=== PATIENT | male | born 1985 | race Caucasian/White ===

== ENCOUNTER 2023-03-30 08:52 | Outpatient (CLI) | payer OTHER, SELFPAY ==
[2023-03-30 12:47] LABS: Basophils Absolute Auto 0.1 K/mm3 (0.0-0.1); Basophils Percent Auto 0.7 % (0.2-1.2); Eosinophils Absolute Auto 0.4 K/mm3 (0-0.3); Eosinophils Percent Auto 3.8 % (0-4.4); Hemoglobin 14.9 g/dL (14.0-18.0); Immature Granulocyte Absolute 0.17 K/mm3 (0.00-0.031); Immature Granulocyte Percent A 1.7 % (0-0.5); Lymphocytes Absolute Auto 3.79 K/mm3 (0.9-3.2); Lymphocytes Percent Auto 36.9 % (18.3-44.2); Mean Corpuscular HGB Conc 33.9 g/dl (32-36); Mean Corpuscular Volume 91.5 fl (80-100); Mean Platelet Volume 10.5 fl (7.4-10.4); Monocytes Absolute Auto 1.2 K/mm3 (0.1-0.6); Monocytes Percent Auto 11.2 % (2.6-8.5); Neutrophils Absolute Auto 4.7 K/mm3 (1.3-6.7); Neutrophils Percent Auto 45.7 % (45.5-73.1); Platelet Count Result 302 k/mm3 (150-375); Red Blood Count 4.81 M/mm3 (4.6-6.20); Red Cell Distribution Width 13.8 % (11.5-14.5); White Blood Count 10.3 K/mm3 (4.5-10.0)
[2023-03-30 13:18] LABS: Alanine Aminotransferase 34 U/L (6-50); Albumin Level 4.6 g/dL (3.5-5.1); Alkaline Phosphatase 74 U/L (38-126); Anion Gap 9 mmol/L (8-16); Aspartate Amino Transferase 44 U/L (17-59); Bilirubin,Total 0.4 mg/dL (0.2-1.3); Blood Urea Nitrogen 20 mg/dL (9-20); Calcium 8.8 mg/dL (8.4-10.2); Carbon Dioxide 24 mmol/L (22-30); Chloride 107 mmol/L (98-107); Cholesterol 184 mg/dL (0-200); Estimated Glomerular Filt Rate > 60; Glucose 87 mg/dL (65-110); HDL Direct 33 mg/dL; Sodium 140 mmol/L (137-145); Triglycerides 233 mg/dL (<150)
[2023-03-30 13:31] LABS: LDL Cholesterol Direct 101 mg/dL
[2023-03-30 13:58] LABS: Vitamin D 25 Hydroxy 38.3 ng/mL
== END 2023-03-30 08:53 | disposition home or self-care (01) ==
LOC: ANHGOSHLAB 08:54
PROVIDERS: PCP Family Medicine; Visit Provider Nurse Practitioner
DX: F41.9 Anxiety disorder, unspecified (principal); F32.A Depression, unspecified; I10 Essential (primary) hypertension
CPT/HCPCS: 36415; 80053; 80061; 82306; 84443; 85025

== ENCOUNTER 2023-06-15 14:01 | Emergency (ER) | payer OTHER, SELFPAY ==
[2023-06-15 14:19] VITALS: BP 148/92; PULSE 76; RESP 19; TEMP 36.3; O2SAT 99
[2023-06-15 14:44] LABS: Basophils Absolute Auto 0.1 K/mm3 (0.0-0.1); Basophils Percent Auto 0.5 % (0.2-1.2); Eosinophils Absolute Auto 0.5 K/mm3 (0-0.3); Eosinophils Percent Auto 3.9 % (0-4.4); Hematocrit 42.5 % (42.0-52.0); Hemoglobin 14.5 g/dL (14.0-18.0); Immature Granulocyte Absolute 0.08 K/mm3 (0.00-0.031); Immature Granulocyte Percent A 0.7 % (0-0.5); Lymphocytes Absolute Auto 3.68 K/mm3 (0.9-3.2); Lymphocytes Percent Auto 31.1 % (18.3-44.2); Mean Corpuscular HGB Conc 34.1 g/dl (32-36); Mean Corpuscular Hemoglobin 30.7 pg (26-34); Mean Corpuscular Volume 89.9 fl (80-100); Mean Platelet Volume 10.7 fl (7.4-10.4); Monocytes Percent Auto 8.1 % (2.6-8.5); Neutrophils Absolute Auto 6.6 K/mm3 (1.3-6.7); Neutrophils Percent Auto 55.7 % (45.5-73.1); Platelet Count Result 219 k/mm3 (150-375); Red Blood Count 4.73 M/mm3 (4.6-6.20); Red Cell Distribution Width 13.6 % (11.5-14.5); White Blood Count 11.8 K/mm3 (4.5-10.0)
[2023-06-15 14:56] LABS: Alanine Aminotransferase 35 U/L (6-50); Albumin Level 4.1 g/dL (3.5-5.1); Alkaline Phosphatase 74 U/L (38-126); Anion Gap 7 mmol/L (8-16); Aspartate Amino Transferase 29 U/L (17-59); Bilirubin,Total 0.4 mg/dL (0.2-1.3); Blood Urea Nitrogen 13 mg/dL (9-20); Calcium 8.7 mg/dL (8.4-10.2); Carbon Dioxide 27 mmol/L (22-30); Chloride 104 mmol/L (98-107); Estimated CRCL calculation 104 ml/min; Estimated Glomerular Filt Rate > 60; Glucose 94 mg/dL (65-110); Potassium 4.3 mmol/L (3.4-5.0); Sodium 138 mmol/L (137-145)
[2023-06-15 14:57] LABS: INR 0.9; Prothrombin Time 12.6 Seconds (11.1-14.7)
[2023-06-15 14:58] LABS: Partial Thromboplastin Time 25.2 SECONDS (22.3-36.8)
--- NOTE | 2023-06-15 16:12 | ED.GENADULT ---
HPI - General Adult General Chief complaint: GI Bleed Stated complaint: bloody stools Time Seen by Provider: 06/15/23 15:52 History of Present Illness HPI narrative: Patient is a 38-year-old male who presents ER with rectal bleeding. It occurs only when he is wiping. Ongoing for months but worsening over the last couple of weeks. He has not filled the stool with blood. He has been using topical Preparation H but he does not know if it is witch lorraine or steroid or lidocaine. No constipation. He does do some heavy lifting at his place of work for the [employer]. He has had no dizziness or loss of consciousness. He does have history of hemorrhoidectomy in the past. Related Data Allergies Allergy/AdvReac Type Severity Reaction Status Date / Time No Known Allergies Allergy Unverified 03/30/23 08:06 Review of Systems Review of Systems: All systems reviewed & are unremarkable except as noted in HPI and below Gastrointestinal: Gastrointestinal: Denies abdominal pain, Denies diarrhea, Denies nausea and Denies vomiting Comments: Hemorrhoids Neurologic: Denies dizziness and Denies syncope PMFSH Past Medical History Medical History (Updated 06/15/23 @ 16:19 by Norman Ovalles MD) Anxiety and depression Hemorrhoid Hypertension Surgical History Surgical History (Updated 06/15/23 @ 16:19 by Norman Ovalles MD) History of hemorrhoidectomy Family History Family History (Updated 03/30/23 @ 08:14 by Rosibel Boucher CMA) Father Hypertension Mother Hypertension Sibling Hypertension Social History Social History (Updated 03/30/23 @ 08:11 by Rosibel Boucher CMA) Smoking status: Current every day smoker Tobacco type: cigarettes Alcohol intake: never Lack of Transportation: No Lack of Food: Never True Current Housing: I Have Housing Concerned About Future Housing: YES Difficulty Paying Gas/Electric Bills: YES Difficulty Paying for Meds: YES Currently Unemployed: No Education: High School Diploma/GED Difficulty w/ Childcare or Family Care: No Exam Narrative: GENERAL: Well-appearing, well-nourished, and in no acute distress. HEAD: Normocephalic, atraumatic. CHEST: Clear to auscultation. No respiratory distress. HEART: Regular rate and rhythm. Normal peripheral pulses. ABDOMEN: Soft, nontender, nondistended. Rectal: There is a small hemorrhoid at the 2 o'clock position with patient laying in the right lateral decubitus position. Nonthrombosed and nonbleeding. No fissures. NEURO: Alert and oriented x3. PSYCH: Normal mood and affect. Course Course Emergency Course: Patient resting comfortably. Discussed conservative treatment options. Patient would like a work note. Discharge home. Vital Signs Vital signs: Vital Signs Temperature 97.4 F L 06/15/23 14:19 Pulse Rate 76 06/15/23 14:19 Respiratory Rate 19 06/15/23 14:19 Blood Pressure 148/92 H 06/15/23 14:19 Pulse Oximetry 99 06/15/23 14:19 Oxygen Delivery Room Air 06/15/23 14:19 Temperature 97.4 F L 06/15/23 14:19 Pulse Rate 76 06/15/23 14:19 Respiratory Rate 19 06/15/23 14:19 Blood Pressure 148/92 H 06/15/23 14:19 Pulse Oximetry 99 06/15/23 14:19 Oxygen Delivery Room Air 06/15/23 14:19 Medical Decision Making Vital Signs Vital Signs: Vital Signs Temperature 97.4 F L 06/15/23 14:19 Pulse Rate 76 06/15/23 14:19 Respiratory Rate 19 06/15/23 14:19 Blood Pressure 148/92 H 06/15/23 14:19 Pulse Oximetry 99 06/15/23 14:19 Oxygen Delivery Room Air 06/15/23 14:19 Temperature 97.4 F L 06/15/23 14:19 Pulse Rate 76 06/15/23 14:19 Respiratory Rate 19 06/15/23 14:19 Blood Pressure 148/92 H 06/15/23 14:19 Pulse Oximetry 99 06/15/23 14:19 Oxygen Delivery Room Air 06/15/23 14:19 Lab Data 06/15/23 14:36 06/15/23 14:36 Labs: Lab Results 06/15/23 Range/Units 14:36 WBC 11.8 H (4.
[2023-06-15 16:47] VITALS: BP 132/86; PULSE 78; RESP 16; O2SAT 98
== END 2023-06-15 16:48 | disposition home or self-care (01) ==
LOC: ANHED 16:25
PROVIDERS: Emergency Provider Emergency Medicine
DX: K64.9 Unspecified hemorrhoids (principal); I10 Essential (primary) hypertension
CPT/HCPCS: 36415; 80053; 85025; 85610; 85730; 86850; 86900; 86901; 99283

== ENCOUNTER 2025-07-17 12:52 | Emergency (ER) | payer OTHER, SELFPAY ==
--- NOTE | ~2025-07-17 | CT_ITS ---
EXAMINATION: CT soft tissue neck w con DATE: 07/17/2025 15:39 INDICATION: Left lower neck and jaw pain and swelling TECHNIQUE: Computed tomography (CT) of the neck was performed with 75 mL Omnipaque-350 intravenous contrast. Automated exposure control and iterative reconstruction technique were employed. The dose-length product was 593.18 mGy-cm. COMPARISON: None FINDINGS: Orbits are normal. The paranasal sinuses are clear. Mastoid air cells and middle ear cavities are clear. Bilateral parotid glands are normal and symmetric. There is asymmetric reticulated pattern of decreased attenuation suggestive of interstitial edema within the left parotid gland. There are also appears to be some relative hyperemia of the left parotid gland when compared with the right as well as some surrounding edema in the left submandibular subcutaneous fat. Constellation of findings consistent with sialoadenitis. No abscess. Likely benign 1.4 cm hypodense nodule at the inferior left thyroid lobe. There are scattered normal-sized lymph nodes in the neck, no lymphadenopathy. No masses identified. The vasculature is patent and normal in caliber. Airway is unremarkable. Superior mediastinum is unremarkable. Lung apices are normal. Bones are unremarkable. IMPRESSION: 1. Left submandibular sialoadenitis. Reviewed, dictated and finalized at location A.
[2025-07-17 12:55] VITALS: BP 149/84; PULSE 77; RESP 16; TEMP 36.8; O2SAT 100
--- OUTSIDE RECORDS SUMMARY | 2025-07-17 12:57 | XMS_ITS | Continuity of Care Document ---
Author Name Margy Oakes Address [address] [place], [place] [id number] [place] [address] Organization Unknown Address [address] [place] [address] Medications No known medications Problems No known problems
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
--- OUTSIDE RECORDS SUMMARY | 2025-07-17 12:58 | XMS_ITS | Continuity of Care Document ---
Author Name Champ Margy Address [address] [facility] [place] [address] Organization Unknown Address [address] [place] [address] Medications No known medications Problems * Depression, unspecified on: 2024-04-19 * Referral Request on: 2024-04-19
[2025-07-17 13:01] VITALS: BP 155/97; PULSE 69; RESP 16; TEMP 36.9; O2SAT 99
[2025-07-17 15:10] LABS: Hematocrit 39.2 % (42.0-52.0); Hemoglobin 13.1 g/dL (14.0-18.0); Immature Granulocyte Percent A 0.3 % (0-0.5); Lymphocytes Absolute Auto 3.36 K/mm3 (0.9-3.2); Mean Corpuscular HGB Conc 33.4 g/dl (32-36); Mean Corpuscular Hemoglobin 30.4 pg (26-34); Mean Corpuscular Volume 91.0 fl (80-100); Nucleated Red Blood Cells Absolute Auto 0.000 K/mm3 (0.0-0.012); Nucleated Red Blood Cells Perc 0.0 % (0.0-0.2); Platelet Count Result 244 k/mm3 (150-375); Red Blood Count 4.31 M/mm3 (4.6-6.20); White Blood Count 11.8 K/mm3 (4.5-10.0)
[2025-07-17 15:21] LABS: Alanine Aminotransferase 28 U/L (6-50); Albumin Level 4.0 g/dL (3.5-5.1); Alkaline Phosphatase 59 U/L (38-126); Anion Gap 5 mmol/L (4-12); Aspartate Amino Transferase 33 U/L (17-59); Bilirubin,Total 0.6 mg/dL (0.2-1.3); Blood Urea Nitrogen 16 mg/dL (9-20); Calcium 8.7 mg/dL (8.4-10.2); Carbon Dioxide 25 mmol/L (22-30); Chloride 107 mmol/L (98-107); Estimated CRCL calculation 94 ml/min; Estimated Glomerular Filt Rate > 60; Glucose 94 mg/dL (65-110); Potassium 4.0 mmol/L (3.4-5.0); Sodium 137 mmol/L (137-145); Total Protein 6.5 g/dL (6.3-8.2)
[2025-07-17] MEDS: IBUPROFEN 600 MG TABLET PO (15:53)
--- NOTE | 2025-07-17 16:09 | ED.DENTAL ---
HPI - Dental/Oral General Chief complaint: Dental/Oral Stated complaint: neck swelling/throat pain Time Seen by Provider: 07/17/25 13:26 Source: patient Mode of arrival: ambulatory Limitations: no limitations History of Present Illness HPI Narrative: Patient is a 40-year-old male who presents the ED with report of left-sided jaw pain/swelling. Patient reports he noticed an area of swelling under his left jaw today was smoking a cigarette at his break at work. He reports pain and swelling to the left jaw. Denies difficulty breathing or swelling. Denies dental pain, but does have a known fractured tooth along his left lower teeth. Denies fevers. Related Data Allergies Allergy/AdvReac Type Severity Reaction Status Date / Time No Known Allergies Allergy Unverified 07/17/25 12:57 Review of Systems Review of Systems: All systems reviewed & are unremarkable except as noted in HPI. All systems reviewed & are unremarkable except as noted in HPI and below PMFSH Past Medical History Medical History Hemorrhoid Anxiety and depression Hypertension Surgical History Surgical History History of hemorrhoidectomy Family History Family History Father Hypertension Mother Hypertension Sibling Hypertension Social History Social History Smoking status: Current every day smoker Tobacco type: cigarettes Alcohol intake: never Lack of Transportation: No Lack of Food: Never True Current Housing: I Have Housing Concerned About Future Housing: YES Difficulty Paying Gas/Electric Bills: YES Difficulty Paying for Meds: YES Currently Unemployed: No Education: High School Diploma/GED Difficulty w/ Childcare or Family Care: No Exam Narrative: GENERAL: Well appearing, well-nourished, non-toxic, in no acute distress. HEAD: Normocephalic, atraumatic. ENT: Mild fullness/swelling/focal TTP to L submandibular region. No overlying skin erythema/warmth. MMs moist. Scattered dental caries. No appreciable tenderness along left lower gumline with palpation. No focal fluctuance or drainage within the mouth. No stridor or trismus. RESPIRATORY: Airway patent, respirations nonlabored. CARDIOVASCULAR: Regular rate and rhythm MUSCULOSKELETAL: Moves all extremities. No gross deformities. SKIN: Warm, dry, normal color. NEURO: A&O X3. Speech clear. PSYCHIATRIC: Appropriate mood and affect. Normal interaction. Course Vital Signs Vital signs: Vital Signs Temperature 98.2 F 07/17/25 12:55 Pulse Rate 77 07/17/25 12:55 Respiratory Rate 16 07/17/25 12:55 Blood Pressure 149/84 H 07/17/25 12:55 Pulse Oximetry 100 07/17/25 12:55 Temperature 98.5 F 07/17/25 13:01 Pulse Rate 66 07/17/25 16:34 Respiratory Rate 14 07/17/25 16:34 Blood Pressure 123/63 07/17/25 16:34 Pulse Oximetry 99 07/17/25 16:34 Oxygen Delivery Room Air 07/17/25 13:01 MDM - Dental/Oral MDM Narrative Medical decision making narrative: Patient presented to ED with left-sided jaw pain and swelling. Vital stable upon arrival. Patient afebrile here. Cbc with white blood cell count of 11.8. Remainder basic laboratory studies are unremarkable. CT soft tissue neck was obtained and showing evidence of left submandibular sialoadenitis. Consistent w/ clinical picture. Will treat for such. Will cover for infectious etiology with Augmentin. Discussed warm compresses, gentle massages, sialagogues, anti-inflammatories. Will refer to ENT for further eval if needed. Given strict return precautions. Patient in agreement with plan. Discharged in stable condition. Medical Records Attestation: I reviewed the patient's medical records. Lab Data Attestation: I reviewed the patient's lab results. 07/17/25 15:05 07/17/25 15:05 Labs: Lab Results 07/17/25 Range/Units 15:05 WBC 11.8 H (4.5-10.0) K/mm3 RBC 4.31 L (4.6-6.20) M/mm3 Hgb 13.1 L (14.0-18.0) g/dL Hct 39.2 L (42.0-52.0) % MCV 91.0 (80-100) fl MCH 30.4 (26-34) pg MCHC 33.4 (32-36) g/dl RDW 13.8 (11.5-14.5) % Plt Count 244 (150-375) k/mm3 MPV 9.7 (7.4-10.4) fl Immature Gran % (Auto) 0.3 (0-0.5) % Neut % (Auto) 60.9 (45.5-73.1) % Lymph % (Auto) 28.5 (18.3-44.2) % [place] % (Auto) 7.3 (2.6-8.5) % Eos % (Auto) 2.6 (0-4.4) % Baso % (Auto) 0.4 (0.2-1.2) % Lymph # (Auto) 3.36 H (0.9-3.2) K/mm3 [place] # (Auto) 0.9 H (0.1-0.6) K/mm3 Eos # (Auto) 0.3 (0-0.3) K/mm3 Baso # (Auto) 0.1 (0.0-0.1) K/mm3 Abs Immat Gran (auto) 0.04 H (0.00-0.031) K/mm3 Absolute Neuts (auto) 7.2 H (1.3-6.7) K/mm3 Absolute Nucleated RBC 0.000 (0.0-0.012) K/mm3 Nucleated RBC % 0.0 (0.0-0.2) % Sodium 137 (137-145) mmol/L Potassium 4.0 (3.4-5.0) mmol/L Chloride 107 (98-107) mmol/L Carbon Dioxide 25 (22-30) mmol/L Anion Gap 5 (4-12) mmol/L BUN 16 (9-20) mg/dL Creatinine 0.98 (0.7-1.3) mg/dL Estim Creat Clear Calc 94 ml/min Estimated GFR > 60 (59 - ) Glucose 94 (65-110) mg/dL Calcium 8.7 (8.4-10.2) mg/dL Total Bilirubin 0.6 (0.2-1.3) mg/dL AST 33 (17-59) U/L ALT 28 (6-50) U/L Alkaline Phosphatase 59 (38-126) U/L Total Protein 6.5 (6.3-8.2) g/dL Albumin 4.0 (3.5-5.1) g/dL Imaging Data Attestation: I personally reviewed and interpreted this imaging study as follows: Radiologist's impression: ITS Impressions Soft Tissue Neck CT 07/17/25 15:52 IMPRESSION: 1. Left submandibular sialoadenitis. Discharge Plan Discharge Clinical Impression: Acute sialoadenitis Patient Disposition: Home Condition: Stable Instructions: Antibiotic Form, Sialoadenitis (ED) Additional Instructions: Take antibiotics as prescribed. Continue Tylenol, ibuprofen as needed for pain. Recommend warm compresses, gentle massages of left salivary gland. Recommend eating sour/lemon candies to encourage production of saliva from your salivary gland. Follow-up with your primary care doctor and/or ENT for further evaluation if needed. Return to the ED if you experience worsening or severe pain or swelling, difficulty keeping down food or drink, difficulty breathing, persistent fevers, or any other symptoms of concern. Patient Language: Macedonian Prescriptions: New amoxicillin-pot clavulanate 875-125 mg tablet 1 tablet PO Q12H 7 Days Qty: 14 0RF No Action venlafaxine 37.5 mg capsule,extended release 24hr 37.5 mg PO DAILY Qty: 7 0RF venlafaxine 75 mg capsule,extended release 24hr 75 mg PO DAILY Qty: 30 0RF Rx Instructions: To be started AFTER taking Venlafaxine 37.5mg PO daily x 7 days hydrocortisone acetate [Anusol-HC] 25 mg suppository 25 mg RECTAL DAILY Qty: 12 0RF docusate sodium [Colace] 100 mg capsule 100 mg PO DAILY Qty: 14 0RF Tucks (witch lorraine) 50 % pads, medicated 1 pad topical BID Qty: 40 0RF Follow-up/Referrals: Tommie Wang MD [Physician, Ear, Nose, Throat] Referral Note: ENT PHYSICIAN NOT ON STAFF,NONSTAFF [Primary Care Provider] Stand Alone Forms: Work/School Release IP Time of Disposition: 16:22
[2025-07-17 16:34] VITALS: BP 123/63; PULSE 66; RESP 14; O2SAT 99
== END 2025-07-17 16:35 | disposition home or self-care (01) ==
PROVIDERS: Emergency Provider Physician Assistant
DX: K11.21 Acute sialoadenitis (principal); I10 Essential (primary) hypertension; F41.9 Anxiety disorder, unspecified; F32.A Depression, unspecified; F17.210 Nicotine dependence, cigarettes, uncomplicated; Z79.899 Other long term (current) drug therapy
CPT/HCPCS: 36415; 70491; 80053; 85025; 99284; A9270; Q9967